=== PATIENT | female | born 1945 | race Caucasian/White ===

== ENCOUNTER 2018-04-13 20:17 | Inpatient (IN) | payer MEDICARE, BC ==
[2018-04-13 21:28] LABS: ADD MAN DIFF? NO; BASOPHIL # 0.1 10^3/ul (0.0-0.1); BASOPHILS % 0.5 % (0.0-2.0); EOSINOPHILS % 0.3 % (0.0-7.0); HEMATOCRIT 37.8 % (37.0-47.0); LYMPHOCYTES # 0.8 10^3/ul (0.8-2.9); LYMPHOCYTES % 5.1 % (15.0-51.0); MEAN CORPUSCULAR HEMOGLOBIN 30.2 pg (29.0-33.0); MEAN CORPUSCULAR HGB CONC 31.7 g/dl (32.0-37.0); MEAN PLATELET VOLUME 10.1 fl (7.4-10.4); MONOCYTES % 6.2 % (0.0-11.0); NEUTROPHIL # 13.5 10^3/ul (1.6-7.5); NEUTROPHILS % 85.7 % (39.0-77.0); PLATELET COUNT 313 10^3/UL (140-415); RED BLOOD COUNT 3.98 10^6/ul (4.20-5.40); RED CELL DISTRIBUTION WIDTH 14.1 % (11.5-14.5)
[2018-04-13 21:28] LABS: WHITE BLOOD COUNT 15.8 10^3/ul (4.8-10.8)
[2018-04-13] MEDS: ACETAMINOPHEN 325 MG TAB PO (21:32)
[2018-04-13] MEDS: PIPER-TAZO 3.375 GM IV (PMX) 100 ML IVPB (21:33)
[2018-04-13] MEDS: SODIUM CHLORIDE 0.9% 1L BAG IV* (21:33)
[2018-04-13 21:51] LABS: ALANINE AMINOTRANSFERASE 133 IU/L (13-69); ALBUMIN 3.5 g/dl (3.3-4.9); ALBUMIN/GLOBULIN RATIO 1.06; ALKALINE PHOSPHATASE 183 IU/L (42-121); ANION GAP 17 (8-16); ASPARTATE AMINO TRANSFERASE 242 IU/L (15-46); BILIRUBIN,INDIRECT 0.7 mg/dl (0-1.1); BILIRUBIN,TOTAL 1.6 mg/dl (0.2-1.3); BLOOD UREA NITROGEN 7 mg/dl (7-20); CALCIUM 10.4 mg/dl (8.4-10.2); CARBON DIOXIDE 23 mmol/L (21-31); CHLORIDE 102 mmol/L (97-110); CREATININE 0.85 mg/dl (0.44-1.00); GLUCOSE 124 mg/dl (70-220); POTASSIUM 4.1 mmol/L (3.5-5.1); SODIUM 138 mmol/L (135-144); TOTAL PROTEIN 6.8 g/dl (6.1-8.1)
[2018-04-13 21:56] LABS: INR 1.09; PROTIME 14.2 Sec (11.9-14.9); PT RATIO 1.1
[2018-04-13] MEDS: VANCOMYCIN 1 GM (PMX) 250 ML IVPB (22:06)
[2018-04-13 22:10] LABS: TROPONIN-I < 0.012 ng/ml (0.000-0.120)
[2018-04-13 22:29] LABS: LACTIC ACID 2.9 mmol/L (0.5-2.0)
[2018-04-13 22:37] LABS: ADD UMIC NO; UR ASCORBIC ACID NEGATIVE (NEGATIVE); UR BILIRUBIN (Dip) NEGATIVE (NEGATIVE); UR BLOOD (Dip) NEGATIVE (NEGATIVE); UR CLARITY CLEAR (CLEAR); UR COLOR YELLOW (YELLOW); UR GLUCOSE (Dip) NEGATIVE (NEGATIVE); UR KETONES (Dip) NEGATIVE (NEGATIVE); UR LEUKOCYTE ESTERASE (Dip) NEGATIVE Leu/ul (NEGATIVE); UR NITRITE (Dip) NEGATIVE (NEGATIVE); UR SPECIFIC GRAVITY (Dip) 1.012 (1.003-1.030); UR TOTAL PROTEIN (Dip) NEGATIVE (NEGATIVE); UR UROBILINOGEN (Dip) NEGATIVE (NEGATIVE)
[2018-04-14] MEDS ORDERED: NACL 0.9% 3 ML SYG IV
[2018-04-14] MEDS ORDERED: ONDANSETRON 4 MG INJ IV ×2
[2018-04-14] MEDS ORDERED: VANCOMYCIN IV PER PHARMACY XX
[2018-04-14 01:42] LABS: LACTIC ACID 1.5 mmol/L (0.5-2.0)
[2018-04-14] MEDS: PIPER-TAZO 2.25 GM (PMX) 50 ML IVPB ×4 (04:12→20:19)
[2018-04-14 04:14] LABS: LACTIC ACID 2.4 mmol/L (0.5-2.0)
[2018-04-14] MEDS: ACETAMINOPHEN 325 MG TAB PO ×2 (04:49→21:38)
[2018-04-14] MEDS: DEXTROSE 5%-0.45% NACL 1,000 ML IV ×3 (06:53→20:19)
[2018-04-14] MEDS ORDERED: hydrALAzine 20 MG INJ IV (07:00)
[2018-04-14] MEDS: FAMOTIDINE 20 MG INJ IV (09:03)
[2018-04-14] MEDS: FLUTICASONE/VILANTEROL 200-25 INH DEVICE INH (09:03)
[2018-04-14 09:57] LABS: ADD MAN DIFF? NO
[2018-04-14 10:03] LABS: BASOPHIL # 0.1 10^3/ul (0.0-0.1); BASOPHILS % 0.3 % (0.0-2.0); EOSINOPHILS % 0.1 % (0.0-7.0); HEMOGLOBIN 10.8 g/dl (12.0-16.0); LYMPHOCYTES # 0.7 10^3/ul (0.8-2.9); LYMPHOCYTES % 3.6 % (15.0-51.0); MEAN CORPUSCULAR HEMOGLOBIN 29.8 pg (29.0-33.0); MEAN CORPUSCULAR HGB CONC 30.9 g/dl (32.0-37.0); MEAN CORPUSCULAR VOLUME 96.7 fl (82.0-101.0); MEAN PLATELET VOLUME 9.4 fl (7.4-10.4); MONOCYTE # 1.2 10^3/ul (0.3-0.9); MONOCYTES % 6.5 % (0.0-11.0); NEUTROPHIL # 16.3 10^3/ul (1.6-7.5); NEUTROPHILS % 86.7 % (39.0-77.0); PLATELET COUNT 293 10^3/UL (140-415); RED BLOOD COUNT 3.62 10^6/ul (4.20-5.40); RED CELL DISTRIBUTION WIDTH 14.3 % (11.5-14.5)
[2018-04-14 10:03] LABS: WHITE BLOOD COUNT 18.8 10^3/ul (4.8-10.8)
[2018-04-14 10:17] LABS: HEMOGLOBIN A1C 5.4 % (0-5.9)
[2018-04-14 10:24] LABS: ALANINE AMINOTRANSFERASE 140 IU/L (13-69); ALBUMIN 2.6 g/dl (3.3-4.9); ALBUMIN/GLOBULIN RATIO 0.78; ALKALINE PHOSPHATASE 163 IU/L (42-121); ANION GAP 13 (8-16); ASPARTATE AMINO TRANSFERASE 172 IU/L (15-46); BILIRUBIN,INDIRECT 0.7 mg/dl (0-1.1); BILIRUBIN,TOTAL 1.9 mg/dl (0.2-1.3); BLOOD UREA NITROGEN 7 mg/dl (7-20); CARBON DIOXIDE 22 mmol/L (21-31); CHLORIDE 110 mmol/L (97-110); CREATININE 0.93 mg/dl (0.44-1.00); GLUCOSE 153 mg/dl (70-220); MAGNESIUM 1.4 mg/dl (1.7-2.5); POTASSIUM 3.7 mmol/L (3.5-5.1); SODIUM 141 mmol/L (135-144); TOTAL PROTEIN 5.9 g/dl (6.1-8.1)
[2018-04-14] MEDS: LIDOCAINE 1%/EPI (MDV) 50 ML INJ INJ (14:11)
[2018-04-14] MEDS ORDERED: VANCOMYCIN 1.25 GM in SOD CHLORIDE 0.9% 250 ML IVPB (15:00)
[2018-04-14] MEDS: LIDOCAINE 1% (MDV) 10 ML INJ (15:02)
[2018-04-14] MEDS: MIDAZOLAM 1 MG/ML 2 ML INJ (15:03)
[2018-04-14] MEDS: SOD CHLORIDE 0.9% 0 ML (15:03)
[2018-04-14] MEDS: FENTAnyl 50 MCG/ML VIAL (15:03)
[2018-04-14] MEDS: SODIUM HYPOCHLORITE 0.125% 473 ML BTL IRR ×2 (21:36→21:37)
[2018-04-14] MEDS: NYSTATIN 30 GM POWDER BTL TOP ×2 (21:36→21:37)
[2018-04-14] MEDS: LEVETIRACETAM 500 MG (PMX) 100 ML IVPB (21:37)
[2018-04-14] MEDS: VANCOMYCIN 1.25 GM in SOD CHLORIDE 0.9% 250 ML IVPB (22:15)
[2018-04-15] MEDS: PIPER-TAZO 2.25 GM (PMX) 50 ML IVPB ×4 (01:37→18:18)
[2018-04-15] MEDS: AL HYDROX/MG HYDROX/SIMETH 30 ML CUP PO (03:50)
[2018-04-15] MEDS: FAMOTIDINE 20 MG INJ IV ×2 (03:50→20:37)
[2018-04-15] MEDS: traMADol 50 MG TAB PO (03:50)
[2018-04-15] MEDS: DEXTROSE 5%-0.45% NACL 1,000 ML IV ×2 (05:46→12:36)
[2018-04-15] MEDS: morphine 2 MG INJ IV (06:39)
[2018-04-15 08:00] LABS: TROPONIN-I < 0.012 ng/ml (0.000-0.120)
[2018-04-15] MEDS: SODIUM HYPOCHLORITE 0.125% 473 ML BTL IRR ×2 (10:06→20:38)
[2018-04-15] MEDS: NYSTATIN 30 GM POWDER BTL TOP ×2 (10:06→20:38)
[2018-04-15] MEDS: FLUTICASONE/VILANTEROL 200-25 INH DEVICE INH (10:06)
[2018-04-15] MEDS: ALBUTEROL/IPRATROPIUM (NEB) 3 ML AMP HHN (13:21)
[2018-04-15] MEDS: SOD CHLORIDE 0.9% 500 ML (16:15)
[2018-04-15] MEDS: MIDAZOLAM 1 MG/ML 2 ML INJ (16:35)
[2018-04-15] MEDS: FENTAnyl 50 MCG/ML VIAL (16:35)
[2018-04-15] MEDS: LIDOCAINE 1% (MDV) 10 ML INJ ×2 (16:47)
[2018-04-15] MEDS: HYDROCORTISONE 100 MG INJ IV ×2 (18:18→21:40)
[2018-04-15] MEDS: LEVETIRACETAM 500 MG (PMX) 100 ML IVPB (20:37)
[2018-04-15] MEDS: VANCOMYCIN 1.25 GM in SOD CHLORIDE 0.9% 250 ML IVPB (21:40)
[2018-04-16] MEDS: PIPER-TAZO 2.25 GM (PMX) 50 ML IVPB ×4 (01:20→18:17)
[2018-04-16] MEDS: DEXTROSE 5%-0.45% NACL 1,000 ML IV ×2 (01:46→12:07)
[2018-04-16] MEDS: HYDROCORTISONE 100 MG INJ IV ×3 (06:36→20:44)
[2018-04-16] MEDS: FAMOTIDINE 20 MG INJ IV ×2 (08:52→20:38)
[2018-04-16] MEDS: SODIUM HYPOCHLORITE 0.125% 473 ML BTL IRR (08:52)
[2018-04-16] MEDS: FLUTICASONE/VILANTEROL 200-25 INH DEVICE INH (08:52)
[2018-04-16] MEDS: NYSTATIN 30 GM POWDER BTL TOP (08:53)
[2018-04-16] MEDS: ONDANSETRON 4 MG INJ (20:38)
[2018-04-16] MEDS: LEVETIRACETAM 500 MG (PMX) 100 ML IVPB (20:38)
[2018-04-16] MEDS ORDERED: morphine LIQ (10 MG/5 ML) CUP PO (22:30)
[2018-04-17] MEDS: PIPER-TAZO 2.25 GM (PMX) 50 ML IVPB ×2 (00:32→06:24)
[2018-04-17] MEDS: HYDROCORTISONE 100 MG INJ IV ×3 (06:00→13:43)
[2018-04-17] MEDS: SODIUM HYPOCHLORITE 0.125% 473 ML BTL IRR ×2 (06:24→08:58)
[2018-04-17] MEDS: NYSTATIN 30 GM POWDER BTL TOP ×2 (06:25→08:57)
[2018-04-17] MEDS: ACETAMINOPHEN 325 MG TAB PO ×2 (06:27→17:22)
[2018-04-17] MEDS: FAMOTIDINE 20 MG INJ IV ×2 (08:57→20:16)
[2018-04-17] MEDS: FLUTICASONE/VILANTEROL 200-25 INH DEVICE INH (09:00)
[2018-04-17] MEDS: PIPER-TAZO 3.375 GM IV (PMX) 100 ML IVPB ×2 (13:45→17:21)
[2018-04-17 15:02] LABS: ABNORMAL IP MESSAGE 1; HEMATOCRIT 32.2 % (37.0-47.0); HEMOGLOBIN 10.2 g/dl (12.0-16.0); MEAN CORPUSCULAR HEMOGLOBIN 30.1 pg (29.0-33.0); MEAN CORPUSCULAR HGB CONC 31.7 g/dl (32.0-37.0); MEAN PLATELET VOLUME 9.9 fl (7.4-10.4); PLATELET COUNT 363 10^3/UL (140-415); RED BLOOD COUNT 3.39 10^6/ul (4.20-5.40)
[2018-04-17 15:02] LABS: WHITE BLOOD COUNT 16.4 10^3/ul (4.8-10.8)
[2018-04-17 15:06] LABS: ADD MAN DIFF? YES; POSITIVE DIFF @See below
[2018-04-17 15:22] LABS: ALANINE AMINOTRANSFERASE 281 IU/L (13-69); ALBUMIN 2.5 g/dl (3.3-4.9); ALBUMIN/GLOBULIN RATIO 0.83; ALKALINE PHOSPHATASE 312 IU/L (42-121); ANION GAP 7 (8-16); ASPARTATE AMINO TRANSFERASE 542 IU/L (15-46); BILIRUBIN,INDIRECT 0.6 mg/dl (0-1.1); BILIRUBIN,TOTAL 2.9 mg/dl (0.2-1.3); BLOOD UREA NITROGEN 13 mg/dl (7-20); CALCIUM 9.4 mg/dl (8.4-10.2); CARBON DIOXIDE 21 mmol/L (21-31); CHLORIDE 115 mmol/L (97-110); CREATININE 1.33 mg/dl (0.44-1.00); GLUCOSE 83 mg/dl (70-220); POTASSIUM 3.4 mmol/L (3.5-5.1); SODIUM 140 mmol/L (135-144); TOTAL PROTEIN 5.5 g/dl (6.1-8.1)
[2018-04-17 16:30] LABS: ANISOCYTOSIS 1+ (0-0); BAND NEUTROPHILS #M 0.3 10^3/ul (0.0-0.6); BAND NEUTROPHILS % (M) 2 % (0-4); LYMPHOCYTES #M 1.1 10^3/ul (0.8-2.9); LYMPHOCYTES % (M) 7 % (15-51); MONOCYTE #M 1.1 10^3/ul (0.3-0.9); MONOCYTES % (M) 7 % (0-11); PLATELET ESTIMATE NORMAL; POIKILOCYTOSIS 1+ (0-0); POLYCHROMASIA 1+ (0-0); SEG NEUT #M 13.8 10^3/ul (1.6-7.5); SEGMENTED NEUTROPHILS (M) % 84 % (39-77); SMUDGE%M 3 % (0-0); TARGET CELLS 1+ (0-0)
[2018-04-17] MEDS: predniSONE 10 MG TAB PO (17:21)
[2018-04-17] MEDS: LEVETIRACETAM 500 MG (PMX) 100 ML IVPB (20:15)
[2018-04-18] MEDS: PIPER-TAZO 3.375 GM IV (PMX) 100 ML IVPB ×4 (00:30→17:08)
[2018-04-18] MEDS: AL HYDROX/MG HYDROX/SIMETH 30 ML CUP PO (04:50)
[2018-04-18] MEDS: SODIUM HYPOCHLORITE 0.125% 473 ML BTL IRR ×2 (04:54→09:06)
[2018-04-18] MEDS: NYSTATIN 30 GM POWDER BTL TOP ×2 (04:55→09:06)
[2018-04-18 06:33] LABS: HAAIG REFLEX REFLEX FILED
[2018-04-18 06:42] LABS: WHITE BLOOD COUNT 12.3 10^3/ul (4.8-10.8)
[2018-04-18 06:42] LABS: ABNORMAL IP MESSAGE 1; HEMATOCRIT 28.6 % (37.0-47.0); HEMOGLOBIN 9.2 g/dl (12.0-16.0); MEAN CORPUSCULAR HEMOGLOBIN 30.1 pg (29.0-33.0); MEAN CORPUSCULAR HGB CONC 32.2 g/dl (32.0-37.0); MEAN CORPUSCULAR VOLUME 93.5 fl (82.0-101.0); PLATELET COUNT 321 10^3/UL (140-415); RED BLOOD COUNT 3.06 10^6/ul (4.20-5.40); RED CELL DISTRIBUTION WIDTH 15.5 % (11.5-14.5)
[2018-04-18 06:52] LABS: ADD MAN DIFF? YES; POSITIVE DIFF @See below
[2018-04-18 07:24] LABS: ALANINE AMINOTRANSFERASE 251 IU/L (13-69); ALBUMIN 2.1 g/dl (3.3-4.9); ALBUMIN/GLOBULIN RATIO 0.87; ALKALINE PHOSPHATASE 305 IU/L (42-121); ANION GAP 13 (8-16); ASPARTATE AMINO TRANSFERASE 340 IU/L (15-46); BILIRUBIN,INDIRECT 0.5 mg/dl (0-1.1); BILIRUBIN,TOTAL 1.3 mg/dl (0.2-1.3); BLOOD UREA NITROGEN 16 mg/dl (7-20); CALCIUM 9.1 mg/dl (8.4-10.2); CARBON DIOXIDE 21 mmol/L (21-31); CHLORIDE 114 mmol/L (97-110); CREATININE 1.32 mg/dl (0.44-1.00); GLUCOSE 97 mg/dl (70-220); POTASSIUM 3.8 mmol/L (3.5-5.1); SODIUM 144 mmol/L (135-144); TOTAL PROTEIN 4.5 g/dl (6.1-8.1)
[2018-04-18 07:28] LABS: FREE T4 (FREE THYROXINE) 0.82 ng/dl (0.78-2.44)
[2018-04-18 07:41] LABS: HEPATITIS B SURFACE ANTIGEN NEGATIVE (NEGATIVE)
[2018-04-18 08:00] LABS: HEPATITIS B CORE ANTIBODY NEGATIVE (NEGATIVE); HEPATITIS C VIRAL ANTIBODY NEGATIVE (NEGATIVE)
[2018-04-18 08:30] LABS: BAND NEUTROPHILS % (M) 4 % (0-4); SEGMENTED NEUTROPHILS (M) % 90 % (39-77)
[2018-04-18 08:31] LABS: ANISOCYTOSIS 1+ (0-0); BAND NEUTROPHILS #M 0.4 10^3/ul (0.0-0.6); LYMPHOCYTES #M 0.2 10^3/ul (0.8-2.9); LYMPHOCYTES % (M) 2 % (15-51); METAMYELOCYTES #M 0.2 10^3/ul (0.0-0.0); METAMYELOCYTES %M 2 % (0-0); MONOCYTE #M 0.1 10^3/ul (0.3-0.9); MONOCYTES % (M) 1 % (0-11); PLATELET ESTIMATE NORMAL; POLYCHROMASIA 3+ (0-0); REACTIVE LYMPHOCYTES #M 0.1 10^3/ul (0.0-0.0); REACTIVE LYMPHOCYTES% (M) 1 % (0-0); SEG NEUT #M 11.1 10^3/ul (1.6-7.5)
[2018-04-18] MEDS: FAMOTIDINE 20 MG INJ IV ×2 (09:07→20:45)
[2018-04-18] MEDS: predniSONE 10 MG TAB PO (09:07)
[2018-04-18] MEDS: FLUTICASONE/VILANTEROL 200-25 INH DEVICE INH (09:56)
[2018-04-19] MEDS: PIPER-TAZO 3.375 GM IV (PMX) 100 ML IVPB ×4 (00:12→17:25)
[2018-04-19] MEDS: SODIUM HYPOCHLORITE 0.125% 473 ML BTL IRR ×3 (00:13→20:42)
[2018-04-19] MEDS: NYSTATIN 30 GM POWDER BTL TOP ×3 (00:13→20:41)
[2018-04-19] MEDS: ACETAMINOPHEN 325 MG TAB PO ×2 (01:42→05:35)
[2018-04-19] MEDS: predniSONE 10 MG TAB PO (08:29)
[2018-04-19] MEDS: FLUTICASONE/VILANTEROL 200-25 INH DEVICE INH (08:31)
[2018-04-19] MEDS: FAMOTIDINE 20 MG INJ IV ×2 (08:31→20:42)
[2018-04-19] MEDS: ENOXAPARIN 30 MG/0.3 ML SYG SC (08:51)
[2018-04-19] MEDS ORDERED: LORAZEPAM 2 MG INJ (14:40)
[2018-04-19] MEDS: LORAZEPAM 2 MG INJ IV (14:40)
[2018-04-19] MEDS: SOD CHLORIDE 0.9% 1,000 ML IV (14:43)
[2018-04-19 15:13] LABS: ABNORMAL IP MESSAGE 1; HEMATOCRIT 30.8 % (37.0-47.0); HEMOGLOBIN 9.9 g/dl (12.0-16.0); MEAN CORPUSCULAR HGB CONC 32.1 g/dl (32.0-37.0); MEAN CORPUSCULAR VOLUME 93.3 fl (82.0-101.0); MEAN PLATELET VOLUME 9.7 fl (7.4-10.4); PLATELET COUNT 368 10^3/UL (140-415); RED CELL DISTRIBUTION WIDTH 15.7 % (11.5-14.5)
[2018-04-19 15:13] LABS: WHITE BLOOD COUNT 16.3 10^3/ul (4.8-10.8)
[2018-04-19 15:17] LABS: ADD MAN DIFF? YES; POSITIVE DIFF @See below
[2018-04-19] MEDS: LEVETIRACETAM 1000 MG (PMX) 100 ML IVPB (15:22)
[2018-04-19 15:37] LABS: ANION GAP 14 (8-16); BLOOD UREA NITROGEN 30 mg/dl (7-20); CALCIUM 8.7 mg/dl (8.4-10.2); CARBON DIOXIDE 19 mmol/L (21-31); CHLORIDE 114 mmol/L (97-110); GLUCOSE 103 mg/dl (70-220); SODIUM 143 mmol/L (135-144)
[2018-04-19 15:52] LABS: TROPONIN-I < 0.012 ng/ml (0.000-0.120)
[2018-04-19 16:03] LABS: ANISOCYTOSIS 1+ (0-0); BAND NEUTROPHILS #M 0.8 10^3/ul (0.0-0.6); BAND NEUTROPHILS % (M) 5 % (0-4); LYMPHOCYTES #M 1.3 10^3/ul (0.8-2.9); LYMPHOCYTES % (M) 8 % (15-51); MONOCYTE #M 0.4 10^3/ul (0.3-0.9); MONOCYTES % (M) 3 % (0-11); MYELOCYTES #M 1.1 10^3/ul (0.0-0.0); MYELOCYTES % (M) 7 % (0-0); PLATELET ESTIMATE NORMAL; POLYCHROMASIA 2+ (0-0); REACTIVE LYMPHOCYTES #M 0.1 10^3/ul (0.0-0.0); REACTIVE LYMPHOCYTES% (M) 1 % (0-0); SEG NEUT #M 12.5 10^3/ul (1.6-7.5); SEGMENTED NEUTROPHILS (M) % 76 % (39-77); SMUDGE%M 1 % (0-0)
[2018-04-20 06:19] LABS: ABNORMAL IP MESSAGE 1; HEMATOCRIT 28.3 % (37.0-47.0); HEMOGLOBIN 8.8 g/dl (12.0-16.0); MEAN CORPUSCULAR HEMOGLOBIN 30.2 pg (29.0-33.0); MEAN CORPUSCULAR HGB CONC 31.1 g/dl (32.0-37.0); MEAN CORPUSCULAR VOLUME 97.3 fl (82.0-101.0); MEAN PLATELET VOLUME 9.9 fl (7.4-10.4); NUCLEATED RED BLOOD CELLS% 0.1 /100WBC (0.0-0.0); PLATELET COUNT 322 10^3/UL (140-415); RED BLOOD COUNT 2.91 10^6/ul (4.20-5.40); RED CELL DISTRIBUTION WIDTH 15.9 % (11.5-14.5)
[2018-04-20] MEDS: PIPER-TAZO 3.375 GM IV (PMX) 100 ML IVPB ×5 (06:19→23:47)
[2018-04-20 06:54] LABS: ADD MAN DIFF? YES; POSITIVE DIFF @See below
[2018-04-20 07:05] LABS: ALANINE AMINOTRANSFERASE 106 IU/L (13-69); ALBUMIN 2.2 g/dl (3.3-4.9); ALBUMIN/GLOBULIN RATIO 0.75; ALKALINE PHOSPHATASE 207 IU/L (42-121); ANION GAP 11 (8-16); ASPARTATE AMINO TRANSFERASE 38 IU/L (15-46); BILIRUBIN,INDIRECT 0.5 mg/dl (0-1.1); BILIRUBIN,TOTAL 0.5 mg/dl (0.2-1.3); BLOOD UREA NITROGEN 26 mg/dl (7-20); CALCIUM 8.4 mg/dl (8.4-10.2); CARBON DIOXIDE 21 mmol/L (21-31); CHLORIDE 118 mmol/L (97-110); CREATININE 1.24 mg/dl (0.44-1.00); GLUCOSE 71 mg/dl (70-220); POTASSIUM 3.7 mmol/L (3.5-5.1); SODIUM 146 mmol/L (135-144); TOTAL PROTEIN 5.1 g/dl (6.1-8.1)
[2018-04-20 07:40] LABS: ANISOCYTOSIS 1+ (0-0); BAND NEUTROPHILS #M 0.4 10^3/ul (0.0-0.6); BAND NEUTROPHILS % (M) 3 % (0-4); BASOPHIL #M 0.1 10^3/ul (0.0-0.0); BASOPHILS % (M) 1 % (0-2); BURR CELLS 1+ (0-0); EOSINOPHILS % (M) 1 % (0-7); GIANT THROMBO% (M) 1 % (0-0); LYMPHOCYTES #M 1.4 10^3/ul (0.8-2.9); LYMPHOCYTES % (M) 10 % (15-51); METAMYELOCYTES #M 0.5 10^3/ul (0.0-0.0); METAMYELOCYTES %M 4 % (0-0); MONOCYTE #M 1.4 10^3/ul (0.3-0.9); MONOCYTES % (M) 10 % (0-11); MYELOCYTES #M 0.4 10^3/ul (0.0-0.0); MYELOCYTES % (M) 3 % (0-0); PLATELET ESTIMATE NORMAL; PLATELET MORPHOLOGY COMMENT @See below; POIKILOCYTOSIS 1+ (0-0); POLYCHROMASIA 1+ (0-0); SEG NEUT #M 9.6 10^3/ul (1.6-7.5); SEGMENTED NEUTROPHILS (M) % 68 % (39-77); SMUDGE%M 6 % (0-0)
[2018-04-20] MEDS: NYSTATIN 30 GM POWDER BTL TOP ×2 (09:00→21:08)
[2018-04-20] MEDS: predniSONE 10 MG TAB PO (09:00)
[2018-04-20] MEDS: FLUTICASONE/VILANTEROL 200-25 INH DEVICE INH (09:00)
[2018-04-20] MEDS: FAMOTIDINE 20 MG INJ IV ×2 (09:00→21:07)
[2018-04-20] MEDS: SODIUM HYPOCHLORITE 0.125% 473 ML BTL IRR ×2 (09:00→21:08)
[2018-04-20] MEDS: ENOXAPARIN 30 MG/0.3 ML SYG SC (09:06)
[2018-04-20] MEDS: SOD CHLORIDE 0.9% 1,000 ML IV (10:22)
[2018-04-20] MEDS: ACETAMINOPHEN 325 MG TAB PO (17:55)
[2018-04-20] MEDS: LEVETIRACETAM 500 MG (PMX) 100 ML IVPB (21:07)
[2018-04-21] MEDS: PIPER-TAZO 3.375 GM IV (PMX) 100 ML IVPB ×4 (05:58→23:58)
[2018-04-21] MEDS ORDERED: SOD CHLORIDE 0.9% 500 ML IV ×2 (07:00)
[2018-04-21] MEDS ORDERED: DEXTROSE 5%-0.9% NACL 1,000 ML IV (08:30)
[2018-04-21] MEDS: predniSONE 10 MG TAB PO (08:42)
[2018-04-21] MEDS: NYSTATIN 30 GM POWDER BTL TOP ×2 (08:42→21:05)
[2018-04-21] MEDS: FLUTICASONE/VILANTEROL 200-25 INH DEVICE INH (08:42)
[2018-04-21] MEDS: SODIUM HYPOCHLORITE 0.125% 473 ML BTL IRR ×2 (08:43→21:05)
[2018-04-21] MEDS: FAMOTIDINE 20 MG INJ IV ×2 (08:50→21:04)
[2018-04-21] MEDS: ENOXAPARIN 30 MG/0.3 ML SYG SC (08:50)
[2018-04-21] MEDS: ACETAMINOPHEN 325 MG TAB PO (10:40)
[2018-04-21] MEDS: ALPRAZOLAM 0.5 MG TAB PO (15:24)
[2018-04-21] MEDS: LEVETIRACETAM 500 MG (PMX) 100 ML IVPB (21:04)
[2018-04-22 05:26] LABS: ABNORMAL IP MESSAGE 1; HEMATOCRIT 28.7 % (37.0-47.0); HEMOGLOBIN 8.8 g/dl (12.0-16.0); MEAN CORPUSCULAR HEMOGLOBIN 30.1 pg (29.0-33.0); MEAN CORPUSCULAR HGB CONC 30.7 g/dl (32.0-37.0); MEAN CORPUSCULAR VOLUME 98.3 fl (82.0-101.0); MEAN PLATELET VOLUME 10.1 fl (7.4-10.4); NUCLEATED RED BLOOD CELLS% 0.4 /100WBC (0.0-0.0); PLATELET COUNT 337 10^3/UL (140-415); RED BLOOD COUNT 2.92 10^6/ul (4.20-5.40); RED CELL DISTRIBUTION WIDTH 15.7 % (11.5-14.5)
[2018-04-22 05:26] LABS: WHITE BLOOD COUNT 14.7 10^3/ul (4.8-10.8)
[2018-04-22 05:41] LABS: ADD MAN DIFF? YES; POSITIVE DIFF @See below
[2018-04-22] MEDS: PIPER-TAZO 3.375 GM IV (PMX) 100 ML IVPB ×3 (05:48→17:48)
[2018-04-22 06:00] LABS: ANION GAP 12 (8-16); BLOOD UREA NITROGEN 18 mg/dl (7-20); CALCIUM 8.6 mg/dl (8.4-10.2); CARBON DIOXIDE 23 mmol/L (21-31); CHLORIDE 114 mmol/L (97-110); CREATININE 1.05 mg/dl (0.44-1.00); GLUCOSE 63 mg/dl (70-220); MAGNESIUM 1.8 mg/dl (1.7-2.5); PHOSPHORUS 3.5 mg/dl (2.5-4.9); POTASSIUM 3.7 mmol/L (3.5-5.1); SODIUM 145 mmol/L (135-144)
[2018-04-22 07:42] LABS: ANISOCYTOSIS 1+ (0-0); BAND NEUTROPHILS #M 0.2 10^3/ul (0.0-0.6); BAND NEUTROPHILS % (M) 2 % (0-4); EOSINOPHILS % (M) 1 % (0-7); LYMPHOCYTES #M 1.3 10^3/ul (0.8-2.9); LYMPHOCYTES % (M) 9 % (15-51); MONOCYTE #M 0.4 10^3/ul (0.3-0.9); MONOCYTES % (M) 3 % (0-11); MYELOCYTES #M 0.4 10^3/ul (0.0-0.0); MYELOCYTES % (M) 3 % (0-0); PLATELET ESTIMATE NORMAL; SEG NEUT #M 12.1 10^3/ul (1.6-7.5); SEGMENTED NEUTROPHILS (M) % 82 % (39-77); SMUDGE%M 3 % (0-0)
[2018-04-22] MEDS: SODIUM HYPOCHLORITE 0.125% 473 ML BTL IRR ×2 (09:03→20:50)
[2018-04-22] MEDS: FLUTICASONE/VILANTEROL 200-25 INH DEVICE INH (09:03)
[2018-04-22] MEDS: NYSTATIN 30 GM POWDER BTL TOP ×2 (09:03→20:50)
[2018-04-22] MEDS: FAMOTIDINE 20 MG INJ IV ×2 (09:03→20:45)
[2018-04-22] MEDS: predniSONE 10 MG TAB PO (09:03)
[2018-04-22] MEDS: ENOXAPARIN 30 MG/0.3 ML SYG SC (09:06)
[2018-04-22] MEDS: ALPRAZOLAM 0.5 MG TAB PO (16:42)
[2018-04-22] MEDS: ACETAMINOPHEN 325 MG TAB PO (20:45)
[2018-04-22] MEDS: LEVETIRACETAM 500 MG (PMX) 100 ML IVPB (20:45)
[2018-04-23] MEDS: PIPER-TAZO 3.375 GM IV (PMX) 100 ML IVPB ×4 (00:26→17:41)
[2018-04-23] MEDS: ENOXAPARIN 30 MG/0.3 ML SYG SC (09:00)
[2018-04-23] MEDS: FLUTICASONE/VILANTEROL 200-25 INH DEVICE INH (09:00)
[2018-04-23] MEDS: NYSTATIN 30 GM POWDER BTL TOP ×2 (09:13→20:31)
[2018-04-23] MEDS: predniSONE 10 MG TAB PO (09:13)
[2018-04-23] MEDS: SODIUM HYPOCHLORITE 0.125% 473 ML BTL IRR ×2 (09:13→20:31)
[2018-04-23] MEDS: FAMOTIDINE 20 MG INJ IV (09:14)
[2018-04-23] MEDS: ALPRAZOLAM 0.5 MG TAB PO (12:33)
[2018-04-23] MEDS: LEVETIRACETAM 500 MG (PMX) 100 ML IVPB (20:28)
[2018-04-24 05:04] LABS: ADD MAN DIFF? NO
[2018-04-24 05:08] LABS: WHITE BLOOD COUNT 14.6 10^3/ul (4.8-10.8)
[2018-04-24 05:08] LABS: BASOPHIL # 0.1 10^3/ul (0.0-0.1); BASOPHILS % 0.4 % (0.0-2.0); EOSINOPHILS # 0.1 10^3/ul (0.0-0.5); EOSINOPHILS % 0.7 % (0.0-7.0); HEMATOCRIT 28.4 % (37.0-47.0); HEMOGLOBIN 8.6 g/dl (12.0-16.0); LYMPHOCYTES # 0.8 10^3/ul (0.8-2.9); LYMPHOCYTES % 5.5 % (15.0-51.0); MEAN CORPUSCULAR HEMOGLOBIN 29.6 pg (29.0-33.0); MEAN CORPUSCULAR HGB CONC 30.3 g/dl (32.0-37.0); MEAN CORPUSCULAR VOLUME 97.6 fl (82.0-101.0); MEAN PLATELET VOLUME 10.1 fl (7.4-10.4); MONOCYTE # 0.5 10^3/ul (0.3-0.9); MONOCYTES % 3.2 % (0.0-11.0); NEUTROPHIL # 12.8 10^3/ul (1.6-7.5); NEUTROPHILS % 87.3 % (39.0-77.0); PLATELET COUNT 342 10^3/UL (140-415); RED BLOOD COUNT 2.91 10^6/ul (4.20-5.40); RED CELL DISTRIBUTION WIDTH 15.9 % (11.5-14.5)
[2018-04-24] MEDS: PIPER-TAZO 3.375 GM IV (PMX) 100 ML IVPB ×4 (05:25→17:54)
[2018-04-24 06:49] LABS: ANION GAP 11 (8-16); BLOOD UREA NITROGEN 13 mg/dl (7-20); CALCIUM 8.6 mg/dl (8.4-10.2); CARBON DIOXIDE 21 mmol/L (21-31); CHLORIDE 118 mmol/L (97-110); CREATININE 0.96 mg/dl (0.44-1.00); GLUCOSE 95 mg/dl (70-220); MAGNESIUM 1.7 mg/dl (1.7-2.5); PHOSPHORUS 3.2 mg/dl (2.5-4.9); POTASSIUM 4.1 mmol/L (3.5-5.1); SODIUM 146 mmol/L (135-144)
[2018-04-24] MEDS: FAMOTIDINE 20 MG TAB PO (08:36)
[2018-04-24] MEDS: NYSTATIN 30 GM POWDER BTL TOP (08:36)
[2018-04-24] MEDS: predniSONE 10 MG TAB PO (08:36)
[2018-04-24] MEDS: SODIUM HYPOCHLORITE 0.125% 473 ML BTL IRR (08:37)
[2018-04-24] MEDS: ALPRAZOLAM 0.5 MG TAB PO (12:02)
== END 2018-04-24 20:20 | disposition home health service (06) | DRG 856 ==
LOC: MS1 04-21 22:25 → E/R 20:17 → TEL 04-15 18:10
PROC: 0W9F0ZZ Drainage of Abdominal Wall, Open Approach (ICD-10-PCS; principal; 2018-04-13)
DX: T81.4XXA Infection following a procedure, initial encounter (principal); A41.9 Sepsis, unspecified organism; R65.20 Severe sepsis without septic shock; T81.32XA Disruption of internal operation (surgical) wound, not elsewhere classified, initial encounter; L02.211 Cutaneous abscess of abdominal wall; N17.9 Acute kidney failure, unspecified; Z68.37 Body mass index [BMI] 37.0-37.9, adult; I10 Essential (primary) hypertension; E03.9 Hypothyroidism, unspecified; K27.9 Peptic ulcer, site unspecified, unspecified as acute or chronic, without hemorrhage or perforation; Z79.52 Long term (current) use of systemic steroids; M35.3 Polymyalgia rheumatica; E66.01 Morbid (severe) obesity due to excess calories; J44.9 Chronic obstructive pulmonary disease, unspecified; B96.20 Unspecified Escherichia coli [E. coli] as the cause of diseases classified elsewhere; E80.6 Other disorders of bilirubin metabolism; R74.0 Nonspecific elevation of levels of transaminase and lactic acid dehydrogenase [LDH]
CPT/HCPCS: 36415; 36589; 70450; 71045; 74176; 75989; 76705; 77012; 80048; 80053; 81003; 82962; 83036; 83605; 83735; 84100; 84439; 84443; 84484; 85025; 85610; 85730; 86704; 86709; 86803; 87040; 87070; 87075; 87086; 87340; 93005; 94664; 96365; 96366; 96375; 97110; 97163; 97530; 99291-25

== ENCOUNTER 2018-07-17 19:37 | Inpatient (IN) | payer MEDICARE, BC ==
[2018-07-17] MEDS: HYDROCODONE/APAP (5/325) TAB PO (20:29)
[2018-07-17] MEDS: SOD CHLORIDE 0.9% 1,000 ML IV ×3 (21:28→23:41)
[2018-07-17 21:56] LABS: ADD MAN DIFF? NO
[2018-07-17 21:58] LABS: BASOPHIL # 0.1 10^3/ul (0.0-0.1); BASOPHILS % 1.1 % (0.0-2.0); EOSINOPHILS # 0.3 10^3/ul (0.0-0.5); EOSINOPHILS % 3.4 % (0.0-7.0); HEMATOCRIT 41.5 % (37.0-47.0); HEMOGLOBIN 12.6 g/dl (12.0-16.0); LYMPHOCYTES # 1.5 10^3/ul (0.8-2.9); LYMPHOCYTES % 16.1 % (15.0-51.0); MEAN CORPUSCULAR HEMOGLOBIN 29.4 pg (29.0-33.0); MEAN CORPUSCULAR HGB CONC 30.4 g/dl (32.0-37.0); MEAN CORPUSCULAR VOLUME 96.7 fl (82.0-101.0); MEAN PLATELET VOLUME 9.5 fl (7.4-10.4); MONOCYTE # 1.1 10^3/ul (0.3-0.9); MONOCYTES % 11.8 % (0.0-11.0); NEUTROPHIL # 6.3 10^3/ul (1.6-7.5); NEUTROPHILS % 66.7 % (39.0-77.0); PLATELET COUNT 479 10^3/UL (140-415); RED BLOOD COUNT 4.29 10^6/ul (4.20-5.40); RED CELL DISTRIBUTION WIDTH 15.3 % (11.5-14.5)
[2018-07-17 21:58] LABS: WHITE BLOOD COUNT 9.4 10^3/ul (4.8-10.8)
[2018-07-17 21:59] LABS: ADD UMIC YES; UR ASCORBIC ACID NEGATIVE (NEGATIVE); UR BILIRUBIN (Dip) NEGATIVE (NEGATIVE); UR BLOOD (Dip) NEGATIVE (NEGATIVE); UR CLARITY SLIGHTLY CLOUDY (CLEAR); UR COLOR YELLOW (YELLOW); UR GLUCOSE (Dip) NEGATIVE (NEGATIVE); UR KETONES (Dip) NEGATIVE (NEGATIVE); UR LEUKOCYTE ESTERASE (Dip) TRACE Leu/ul (NEGATIVE); UR MUCUS FEW /HPF (NONE SEEN); UR NITRITE (Dip) NEGATIVE (NEGATIVE); UR RBC 2 /HPF (0-5); UR SPECIFIC GRAVITY (Dip) 1.017 (1.003-1.030); UR SQUAMOUS EPITHELIAL CELL MODERATE /HPF (FEW); UR TOTAL PROTEIN (Dip) NEGATIVE (NEGATIVE); UR TRANSITIONAL EPI CELL FEW /HPF (NONE SEEN); UR UROBILINOGEN (Dip) NEGATIVE (NEGATIVE); UR WBC 5 /HPF (0-5)
[2018-07-17 22:16] LABS: LACTIC ACID 1.5 mmol/L (0.5-2.0)
[2018-07-17 22:17] LABS: ALANINE AMINOTRANSFERASE 16 IU/L (13-69); ALBUMIN 2.4 g/dl (3.3-4.9); ALBUMIN/GLOBULIN RATIO 0.68; ALKALINE PHOSPHATASE 97 IU/L (42-121); ANION GAP 11 (8-16); ASPARTATE AMINO TRANSFERASE 20 IU/L (15-46); BILIRUBIN,INDIRECT 0.1 mg/dl (0-1.1); BILIRUBIN,TOTAL 0.1 mg/dl (0.2-1.3); BLOOD UREA NITROGEN 17 mg/dl (7-20); CALCIUM 11.2 mg/dl (8.4-10.2); CARBON DIOXIDE 24 mmol/L (21-31); CHLORIDE 106 mmol/L (97-110); CREATININE 1.25 mg/dl (0.44-1.00); GLUCOSE 91 mg/dl (70-220); LIPASE 246 U/L (23-300); POTASSIUM 4.9 mmol/L (3.5-5.1); SODIUM 136 mmol/L (135-144); TOTAL PROTEIN 5.9 g/dl (6.1-8.1)
[2018-07-17] MEDS: CEFEPIME 2GM/50 ML (PMX) 50 ML IVPB (23:41)
[2018-07-17] MEDS: morphine 4 MG/ML VIAL IV (23:54)
[2018-07-18] MEDS ORDERED: DOPamine-D5W 1.6 MG/ML 250 ML IV ×2 (00:30→01:30)
[2018-07-18 00:46] LABS: TROPONIN-I < 0.012 ng/ml (0.000-0.120)
[2018-07-18] MEDS ORDERED: ALPRAZOLAM 0.25 MG TAB PO (01:30)
[2018-07-18] MEDS: SOD CHLORIDE 0.9% 1,000 ML IV ×3 (03:01→20:53)
[2018-07-18 04:58] LABS: ADD MAN DIFF? NO
[2018-07-18 05:03] LABS: BASOPHIL # 0.1 10^3/ul (0.0-0.1); BASOPHILS % 0.9 % (0.0-2.0); EOSINOPHILS # 0.3 10^3/ul (0.0-0.5); EOSINOPHILS % 3.5 % (0.0-7.0); HEMOGLOBIN 10.6 g/dl (12.0-16.0); LYMPHOCYTES # 1.1 10^3/ul (0.8-2.9); LYMPHOCYTES % 12.2 % (15.0-51.0); MEAN CORPUSCULAR HEMOGLOBIN 28.6 pg (29.0-33.0); MEAN CORPUSCULAR HGB CONC 29.4 g/dl (32.0-37.0); MEAN CORPUSCULAR VOLUME 97.3 fl (82.0-101.0); MEAN PLATELET VOLUME 9.6 fl (7.4-10.4); MONOCYTE # 0.8 10^3/ul (0.3-0.9); MONOCYTES % 9.5 % (0.0-11.0); NEUTROPHIL # 6.4 10^3/ul (1.6-7.5); NEUTROPHILS % 72.9 % (39.0-77.0); PLATELET COUNT 427 10^3/UL (140-415); RED CELL DISTRIBUTION WIDTH 15.2 % (11.5-14.5)
[2018-07-18 05:03] LABS: WHITE BLOOD COUNT 8.8 10^3/ul (4.8-10.8)
[2018-07-18 05:48] LABS: ALANINE AMINOTRANSFERASE 26 IU/L (13-69); ALBUMIN 1.7 g/dl (3.3-4.9); ALBUMIN/GLOBULIN RATIO 0.58; ALKALINE PHOSPHATASE 72 IU/L (42-121); ANION GAP 11 (8-16); ASPARTATE AMINO TRANSFERASE 17 IU/L (15-46); BILIRUBIN,INDIRECT 0.1 mg/dl (0-1.1); BILIRUBIN,TOTAL 0.1 mg/dl (0.2-1.3); BLOOD UREA NITROGEN 15 mg/dl (7-20); CALCIUM 9.9 mg/dl (8.4-10.2); CARBON DIOXIDE 21 mmol/L (21-31); CHLORIDE 114 mmol/L (97-110); CREATININE 1.06 mg/dl (0.44-1.00); GLUCOSE 76 mg/dl (70-220); POTASSIUM 4.5 mmol/L (3.5-5.1); SODIUM 141 mmol/L (135-144); TOTAL PROTEIN 4.6 g/dl (6.1-8.1)
[2018-07-18 05:49] LABS: LACTIC ACID 1.1 mmol/L (0.5-2.0)
[2018-07-18] MEDS: LEVOTHYROXINE 75 MCG TAB PO (06:47)
[2018-07-18 08:21] LABS: LACTIC ACID 1.2 mmol/L (0.5-2.0)
[2018-07-18] MEDS: HEPARIN 5,000 UNIT/0.5 ML VIAL SC ×2 (08:30→21:00)
[2018-07-18] MEDS: FAMOTIDINE 20 MG INJ IV (08:31)
[2018-07-18] MEDS: ONDANSETRON 4 MG INJ IV (11:27)
[2018-07-18] MEDS: DOCUSATE SODIUM 100 MG CAP PO ×2 (14:00→22:04)
[2018-07-18] MEDS: CEFTRIAXONE 1 GM/50 ML (PMX) 50 ML IVPB (14:58)
[2018-07-19 05:14] LABS: ADD MAN DIFF? NO
[2018-07-19 05:17] LABS: WHITE BLOOD COUNT 10.1 10^3/ul (4.8-10.8)
[2018-07-19 05:17] LABS: BASOPHIL # 0.1 10^3/ul (0.0-0.1); BASOPHILS % 0.8 % (0.0-2.0); EOSINOPHILS # 0.2 10^3/ul (0.0-0.5); EOSINOPHILS % 2.3 % (0.0-7.0); HEMATOCRIT 33.5 % (37.0-47.0); HEMOGLOBIN 10.1 g/dl (12.0-16.0); LYMPHOCYTES # 1.1 10^3/ul (0.8-2.9); LYMPHOCYTES % 10.8 % (15.0-51.0); MEAN CORPUSCULAR HEMOGLOBIN 29.3 pg (29.0-33.0); MEAN CORPUSCULAR HGB CONC 30.1 g/dl (32.0-37.0); MEAN CORPUSCULAR VOLUME 97.1 fl (82.0-101.0); MEAN PLATELET VOLUME 9.7 fl (7.4-10.4); MONOCYTE # 1.1 10^3/ul (0.3-0.9); MONOCYTES % 10.5 % (0.0-11.0); NEUTROPHIL # 7.5 10^3/ul (1.6-7.5); NEUTROPHILS % 74.7 % (39.0-77.0); PLATELET COUNT 371 10^3/UL (140-415); RED BLOOD COUNT 3.45 10^6/ul (4.20-5.40); RED CELL DISTRIBUTION WIDTH 15.6 % (11.5-14.5)
[2018-07-19 05:50] LABS: ANION GAP 8 (8-16); BLOOD UREA NITROGEN 12 mg/dl (7-20); CALCIUM 9.5 mg/dl (8.4-10.2); CARBON DIOXIDE 20 mmol/L (21-31); CHLORIDE 116 mmol/L (97-110); CREATININE 0.79 mg/dl (0.44-1.00); GLUCOSE 80 mg/dl (70-220); MAGNESIUM 1.8 mg/dl (1.7-2.5); POTASSIUM 3.7 mmol/L (3.5-5.1); SODIUM 140 mmol/L (135-144)
[2018-07-19] MEDS: LEVOTHYROXINE 75 MCG TAB PO (06:23)
[2018-07-19] MEDS: SOD CHLORIDE 0.9% 1,000 ML IV (06:23)
[2018-07-19] MEDS: CEFEPIME 1GM/50 ML (PMX) 50 ML IVPB ×2 (08:53→20:15)
[2018-07-19] MEDS: DOCUSATE SODIUM 100 MG CAP PO ×2 (08:54→20:28)
[2018-07-19] MEDS: HEPARIN 5,000 UNIT/0.5 ML VIAL SC ×2 (08:57→20:30)
[2018-07-19] MEDS: FAMOTIDINE 20 MG INJ IV (09:00)
[2018-07-19 09:42] LABS: IRON 24 ug/dl (35-150)
[2018-07-19 09:51] LABS: % IRON SATURATION 16 % SAT (22-52); TOTAL IRON BINDING CAPACITY 151 ug/dl (241-421)
[2018-07-19] MEDS: HYDROCORTISONE 5 MG TAB PO ×4 (10:04→20:16)
[2018-07-19] MEDS: HYDROCORTISONE 100 MG INJ IV (10:05)
[2018-07-19] MEDS: SOD FERRIC GLUC COMPLX 125 MG in SOD CHLORIDE 0.9% 100 ML IVPB (17:00)
[2018-07-20] MEDS: SOD CHLORIDE 0.9% 1,000 ML IV (02:56)
[2018-07-20 04:40] LABS: ADD MAN DIFF? NO
[2018-07-20 04:41] LABS: WHITE BLOOD COUNT 8.2 10^3/ul (4.8-10.8)
[2018-07-20 04:41] LABS: BASOPHILS % 0.4 % (0.0-2.0); HEMATOCRIT 33.1 % (37.0-47.0); HEMOGLOBIN 10.1 g/dl (12.0-16.0); LYMPHOCYTES % 12.7 % (15.0-51.0); MEAN CORPUSCULAR HEMOGLOBIN 29.2 pg (29.0-33.0); MEAN CORPUSCULAR HGB CONC 30.5 g/dl (32.0-37.0); MEAN CORPUSCULAR VOLUME 95.7 fl (82.0-101.0); MEAN PLATELET VOLUME 9.6 fl (7.4-10.4); MONOCYTE # 0.7 10^3/ul (0.3-0.9); MONOCYTES % 8.2 % (0.0-11.0); NEUTROPHIL # 6.4 10^3/ul (1.6-7.5); PLATELET COUNT 325 10^3/UL (140-415); RED BLOOD COUNT 3.46 10^6/ul (4.20-5.40); RED CELL DISTRIBUTION WIDTH 15.6 % (11.5-14.5)
[2018-07-20 05:03] LABS: ANION GAP 10 (8-16); BLOOD UREA NITROGEN 11 mg/dl (7-20); CALCIUM 9.9 mg/dl (8.4-10.2); CARBON DIOXIDE 19 mmol/L (21-31); CHLORIDE 117 mmol/L (97-110); CREATININE 0.77 mg/dl (0.44-1.00); GLUCOSE 85 mg/dl (70-220); MAGNESIUM 1.7 mg/dl (1.7-2.5); PHOSPHORUS 2.3 mg/dl (2.5-4.9); POTASSIUM 3.8 mmol/L (3.5-5.1); SODIUM 142 mmol/L (135-144)
[2018-07-20] MEDS: NEUTRA-PHOS 250 MG PACKET PO (07:49)
[2018-07-20] MEDS: LEVOTHYROXINE 75 MCG TAB PO (07:49)
[2018-07-20] MEDS: FAMOTIDINE 20 MG INJ IV (08:54)
[2018-07-20] MEDS: HYDROCORTISONE 5 MG TAB PO ×3 (08:55→20:32)
[2018-07-20] MEDS: CEFEPIME 1GM/50 ML (PMX) 50 ML IVPB ×2 (08:55→20:29)
[2018-07-20] MEDS: DOCUSATE SODIUM 100 MG CAP PO ×2 (08:55→20:32)
[2018-07-20] MEDS: HEPARIN 5,000 UNIT/0.5 ML VIAL SC ×2 (10:35→20:36)
[2018-07-20] MEDS: SOD FERRIC GLUC COMPLX 125 MG in SOD CHLORIDE 0.9% 100 ML IVPB (16:06)
[2018-07-20] MEDS: ALPRAZOLAM 0.5 MG TAB PO (21:10)
[2018-07-21] MEDS ORDERED: PENDING SANTYL ORDER FOR WOUND CARE XX (01:30)
[2018-07-21] MEDS: LEVOTHYROXINE 75 MCG TAB PO (06:44)
[2018-07-21] MEDS: HYDROCORTISONE 5 MG TAB PO ×2 (09:00→14:19)
[2018-07-21] MEDS: DOCUSATE SODIUM 100 MG CAP PO (09:00)
[2018-07-21] MEDS: CEFEPIME 1GM/50 ML (PMX) 50 ML IVPB (09:28)
[2018-07-21] MEDS: FAMOTIDINE 20 MG INJ IV (09:28)
[2018-07-21] MEDS: HEPARIN 5,000 UNIT/0.5 ML VIAL SC (09:32)
[2018-07-21] MEDS: ACETAMINOPHEN 650MG/20.3ML CUP PO (14:31)
[2018-07-21] MEDS: ALPRAZOLAM 0.5 MG TAB PO (14:50)
== END 2018-07-21 17:52 | disposition home or self-care (01) | DRG 871 ==
LOC: TEL 07-20 23:29 → E/R 19:37 → ICU 07-18 00:17
DX: A41.9 Sepsis, unspecified organism (principal); R65.21 Severe sepsis with septic shock; G92 Toxic encephalopathy; N17.9 Acute kidney failure, unspecified; E87.2 Acidosis; N39.0 Urinary tract infection, site not specified; E27.3 Drug-induced adrenocortical insufficiency; Z74.01 Bed confinement status; M25.562 Pain in left knee; M25.561 Pain in right knee; M35.3 Polymyalgia rheumatica; Z79.52 Long term (current) use of systemic steroids; E03.9 Hypothyroidism, unspecified; G40.909 Epilepsy, unspecified, not intractable, without status epilepticus; J44.9 Chronic obstructive pulmonary disease, unspecified; E66.9 Obesity, unspecified; Z68.36 Body mass index [BMI] 36.0-36.9, adult; I12.9 Hypertensive chronic kidney disease with stage 1 through stage 4 chronic kidney disease, or unspecified chronic kidney disease; N18.9 Chronic kidney disease, unspecified
CPT/HCPCS: 36415; 71045; 73562-50; 76775; 80048; 80053; 81001; 83540; 83605; 83690; 83735; 84100; 84443; 84484; 85025; 87040; 87081; 87086; 93005; 96374; 97162; 99285-25

== ENCOUNTER 2018-08-23 08:28 | Emergency (ER) | payer MEDICARE, BC ==
[2018-08-23] MEDS: SODIUM CHLORIDE 0.9% 1L BAG IV* (09:08)
[2018-08-23] MEDS: SOD CHLORIDE 0.9% 1,000 ML IV ×4 (09:09→15:54)
[2018-08-23 09:12] LABS: ADD MAN DIFF? NO
[2018-08-23 09:14] LABS: BASOPHIL # 0.1 10^3/ul (0.0-0.1); BASOPHILS % 1.3 % (0.0-2.0); EOSINOPHILS # 0.3 10^3/ul (0.0-0.5); EOSINOPHILS % 2.8 % (0.0-7.0); HEMATOCRIT 40.5 % (37.0-47.0); HEMOGLOBIN 12.2 g/dl (12.0-16.0); LYMPHOCYTES % 21.7 % (15.0-51.0); MEAN CORPUSCULAR HEMOGLOBIN 29.3 pg (29.0-33.0); MEAN CORPUSCULAR HGB CONC 30.1 g/dl (32.0-37.0); MEAN CORPUSCULAR VOLUME 97.1 fl (82.0-101.0); MEAN PLATELET VOLUME 11.3 fl (7.4-10.4); MONOCYTE # 0.9 10^3/ul (0.3-0.9); MONOCYTES % 9.9 % (0.0-11.0); NEUTROPHILS % 63.6 % (39.0-77.0); NUCLEATED RED BLOOD CELLS% 0.3 /100WBC (0.0-0.0); PLATELET COUNT 305 10^3/UL (140-415); RED BLOOD COUNT 4.17 10^6/ul (4.20-5.40); RED CELL DISTRIBUTION WIDTH 20.4 % (11.5-14.5)
[2018-08-23 09:14] LABS: WHITE BLOOD COUNT 9.4 10^3/ul (4.8-10.8)
[2018-08-23 09:35] LABS: ALBUMIN 2.7 g/dl (3.3-4.9); ALBUMIN/GLOBULIN RATIO 0.72; ALKALINE PHOSPHATASE 117 IU/L (42-121); ANION GAP 16 (5-13); ASPARTATE AMINO TRANSFERASE 41 IU/L (15-46); BILIRUBIN,INDIRECT 0.1 mg/dl (0-1.1); BILIRUBIN,TOTAL 0.1 mg/dl (0.2-1.3); BLOOD UREA NITROGEN 28 mg/dl (7-20); CALCIUM 11.6 mg/dl (8.4-10.2); CARBON DIOXIDE 20 mmol/L (21-31); CHLORIDE 112 mmol/L (97-110); CREATININE 6.14 mg/dl (0.44-1.00); GLUCOSE 106 mg/dl (70-220); LIPASE 377 U/L (23-300); POTASSIUM 3.3 mmol/L (3.5-5.1); SODIUM 148 mmol/L (135-144); TOTAL PROTEIN 6.4 g/dl (6.1-8.1)
[2018-08-23 09:39] LABS: ALANINE AMINOTRANSFERASE < 6 IU/L (13-69)
[2018-08-23 09:47] LABS: TROPONIN-I < 0.012 ng/ml (0.000-0.120)
[2018-08-23] MEDS: CEFEPIME 2GM/50 ML (PMX) 50 ML IVPB (10:00)
[2018-08-23] MEDS: HYDROCORTISONE 100 MG INJ IV ×2 (10:13→15:01)
[2018-08-23] MEDS ORDERED: LORAZEPAM 2 MG INJ (10:42)
[2018-08-23 10:47] LABS: INR 1.55; PROTIME 18.9 Sec (11.9-14.9); PT RATIO 1.5
[2018-08-23 10:48] LABS: PARTIAL THROMBOPLASTIN TIME 31.9 Sec (23.0-35.0)
[2018-08-23] MEDS ORDERED: DOPamine-D5W 1.6 MG/ML 250 ML (11:12)
[2018-08-23] MEDS ORDERED: NORepinephrine 8MG/250 ML (PMX 250 ML (11:30)
[2018-08-23] MEDS ORDERED: NACL 0.9% 3 ML SYG IV (11:30)
[2018-08-23] MEDS ORDERED: VANCOMYCIN IV PER PHARMACY XX (11:30)
[2018-08-23] MEDS: VANCOMYCIN 1 GM (PMX) 250 ML IVPB (12:05)
[2018-08-23] MEDS: LORAZEPAM 2 MG INJ IV (12:08)
[2018-08-23 12:14] LABS: ADD UMIC YES; UR ASCORBIC ACID NEGATIVE (NEGATIVE); UR BACTERIA FEW /HPF (NONE SEEN); UR BILIRUBIN (Dip) NEGATIVE (NEGATIVE); UR BLOOD (Dip) 3+ mg/dL (NEGATIVE); UR CALCIUM OXALATE CRYSTAL FEW /HPF (NONE SEEN); UR CLARITY CLOUDY (CLEAR); UR COLOR AMBER (YELLOW); UR GLUCOSE (Dip) NEGATIVE (NEGATIVE); UR HYALINE CAST FEW /HPF (NONE SEEN); UR KETONES (Dip) NEGATIVE (NEGATIVE); UR LEUKOCYTE ESTERASE (Dip) 2+ Leu/ul (NEGATIVE); UR MUCUS MANY /HPF (NONE SEEN); UR NITRITE (Dip) NEGATIVE (NEGATIVE); UR RBC 7 /HPF (0-5); UR SPECIFIC GRAVITY (Dip) 1.019 (1.003-1.030); UR SQUAMOUS EPITHELIAL CELL FEW /HPF (FEW); UR TOTAL PROTEIN (Dip) 2+ mg/dl (NEGATIVE); UR UROBILINOGEN (Dip) NEGATIVE (NEGATIVE); UR WBC 29 /HPF (0-5)
[2018-08-23] MEDS: NORepinephrine 8MG/250 ML (PMX 250 ML IV (12:34)
[2018-08-23] MEDS: MEROPENEM 500MG/50 ML (PMX) 50 ML IVPB (13:29)
[2018-08-23] MEDS: SOD CHLORIDE 0.9% 100 ML (13:48)
[2018-08-23] MEDS: IODIXANOL LOCM 100 ML BTL (13:48)
[2018-08-23] MEDS: HEPARIN 25000 UNITS/250 ML 250 ML IV (14:24)
[2018-08-23 14:34] LABS: ADD UMIC YES; UR ASCORBIC ACID NEGATIVE (NEGATIVE); UR BACTERIA MODERATE /HPF (NONE SEEN); UR BILIRUBIN (Dip) NEGATIVE (NEGATIVE); UR BLOOD (Dip) 2+ mg/dL (NEGATIVE); UR CALCIUM OXALATE CRYSTAL MANY /HPF (NONE SEEN); UR CLARITY TURBID (CLEAR); UR COLOR AMBER (YELLOW); UR GLUCOSE (Dip) NEGATIVE (NEGATIVE); UR HYALINE CAST FEW /HPF (NONE SEEN); UR KETONES (Dip) NEGATIVE (NEGATIVE); UR LEUKOCYTE ESTERASE (Dip) 1+ Leu/ul (NEGATIVE); UR MUCUS MANY /HPF (NONE SEEN); UR NITRITE (Dip) NEGATIVE (NEGATIVE); UR RBC 36 /HPF (0-5); UR SPECIFIC GRAVITY (Dip) 1.015 (1.003-1.030); UR SQUAMOUS EPITHELIAL CELL FEW /HPF (FEW); UR TOTAL PROTEIN (Dip) 2+ mg/dl (NEGATIVE); UR UROBILINOGEN (Dip) NEGATIVE (NEGATIVE); UR WBC 113 /HPF (0-5)
[2018-08-23 14:41] LABS: LACTIC ACID 2.6 mmol/L (0.5-2.0)
[2018-08-23 14:43] LABS: ANION GAP 11 (5-13); BLOOD UREA NITROGEN 22 mg/dl (7-20); CALCIUM 9.3 mg/dl (8.4-10.2); CARBON DIOXIDE 16 mmol/L (21-31); CHLORIDE 121 mmol/L (97-110); CREATININE 4.28 mg/dl (0.44-1.00); GLUCOSE 128 mg/dl (70-220); SODIUM 148 mmol/L (135-144)
[2018-08-23 14:45] LABS: POTASSIUM 2.9 mmol/L (3.5-5.1)
[2018-08-23 14:47] LABS: SODIUM,URINE RANDOM 47 mmol/L (30-90)
[2018-08-23 14:47] LABS: CREATININE,URINE RANDOM 198.43 mg/dl (20-320)
[2018-08-23 15:17] LABS: INR 1.57; PARTIAL THROMBOPLASTIN TIME 35.4 Sec (23.0-35.0); PROTIME 19.1 Sec (11.9-14.9); PT RATIO 1.5
[2018-08-23] MEDS: POTASSIUM CHLORIDE 100 ML IVPB (15:54)
[2018-08-23] MEDS: SOD CHLORIDE 0.9% 2,000 ML IV (15:55)
[2018-08-23] MEDS ORDERED: HEPARIN 5,000 UNIT/1 ML VIAL SC (21:00)
[2018-08-25 16:52] LABS: CREATININE, RANDOM URINE 196 mg/dL (20-275); MICROALBUMIN 29.5 mg/dL; MICROALBUMIN/CREATININE RATIO 151 (<30)
== END 2018-08-23 17:30 | disposition short-term general hospital (02) ==
LOC: E/R 08:28
DX: A41.9 Sepsis, unspecified organism (principal); R65.21 Severe sepsis with septic shock; N17.9 Acute kidney failure, unspecified; E86.0 Dehydration; E27.3 Drug-induced adrenocortical insufficiency
CPT/HCPCS: 36415; 71045; 73706; 74176; 80048; 80053; 81001; 81003; 82043; 83605; 83690; 84155; 84300; 84484; 85025; 85610; 85730; 87040; 87086; 93005; 93926; 96361; 96365; 96366; 96368; 96375; 99291-25